=== PATIENT | female | born 1985 | race Caucasian/White ===

== ENCOUNTER 2017-08-03 20:26 | Emergency (ER) | payer MEDICAID ==
[2017-08-03 21:05] VITALS: BP 128/77; PULSE 92; RESP 16; TEMP 98.1; O2SAT 99
--- NOTE | 2017-08-03 21:55 | ED PDOC ---
HPI: CCC, URI, Sore Throat Time Seen by Provider: 08/03/17 20:33 Chief Complaint (Nursing): ENT Problem Chief Complaint (Provider): Globus sensation History Per: Patient Additional Complaint(s): 31 yo female, PMH of Anemia, gestational DM and Hypothyroid in , presents to ED for evaluation of foreign body sensation and pain in her throat x 2 weeks. Pain worse at night. Pt able to tolerate PO without difficulty; however, pain and FB sensation remains resent while eating. Past Medical History Reviewed: Historical Data, Nursing Documentation, Vital Signs Vital Signs: Last Vital Signs Temp 98.1 F 08/03/17 21:03 Pulse 92 H 08/03/17 21:03 Resp 16 08/03/17 21:03 BP 128/77 08/03/17 21:03 Pulse Ox 99 08/03/17 22:07 - Medical History PMH: Anemia (blood transfusions), Hypothyroidism Denies: HIV, Chronic Kidney Disease, Sexually Transmitted Disease - Surgical History Surgical History: - Family History Family History: States: No Known Family Hx - Living Arrangements Living Arrangements: With Family - Social History Current smoker - smoking cessation education provided: No Alcohol: None Drugs: Denies - Home Medications Home Medications: Ambulatory Orders Medication Instructions Recorded Ferrous Sulfate 325 mg PO BID #30 tab 06/28/14 Docusate Sodium [Colace] 1 tab PO BID #30 sgl 11/04/14 Ethinyl Estradiol/Norgestima 4 tab PO DAILY #50 tab 03/08/15 [Ortho-Cyclen 35 Mcg-0.25 mg] Nitrofurantoin Macrocrystals 100 mg PO BID 5 Days cap 01/01/16 [Macrobid] Ondansetron ODT [Zofran ODT] 4 mg PO DAILY PRN #20 odt 01/01/16 Triamcinolone 0.1% [Triamcinolone 0.1 % TP DAILY #1 tube 01/01/16 0.1% Cream] Cephalexin [cephalexin] 500 mg PO QID 7 Days cap 10/02/16 Ibuprofen [Motrin] 600 mg PO Q6 #20 tab 10/02/16 Methylprednisolone [Medrol Dose 4 mg PO DAILY #21 mg 08/03/17 Pack (21 tabs)] - Allergies Allergies/Adverse Reactions: Allergies Allergy/AdvReac Type Severity Reaction Status Date / Time No Known Allergies Allergy Verified 08/03/17 21:03 Review of Systems ROS Statement: Except As Marked, All Systems Reviewed And Found Negative ENT: Positive for: Throat Pain Physical Exam - Reviewed Nursing Documentation Reviewed: Yes Vital Signs Reviewed: Yes - Physical Exam Appears: Positive for: Well, Non-toxic, No Acute Distress Head Exam: Positive for: ATRAUMATIC, NORMAL INSPECTION, NORMOCEPHALIC Skin: Positive for: Normal Color, Warm, DRY Eye Exam: Positive for: EOMI, Normal appearance, PERRL ENT: Positive for: Pharyngeal Erythema. Negative for: Tonsillar Exudate, Tonsillar Swelling Neck: Positive for: Normal, Painless ROM, Supple, Trachea Midline Cardiovascular/Chest: Positive for: Regular Rate, Rhythm Respiratory: Positive for: CNT, Normal Breath Sounds Gastrointestinal/Abdominal: Positive for: Normal Exam, Bowel Sounds, Soft Back: Positive for: Normal Inspection Extremity: Positive for: Normal ROM Neurologic/Psych: Positive for: Alert, Oriented - Laboratory Results Result Diagrams: 08/03/17 22:48 08/03/17 22:48 - ECG O2 Sat by Pulse Oximetry: 99 Medical Decision Making Medical Decision Making: IV access established and diagnostics ordered. Pt educated on globus sensation and RX for medrol dose pack prescribed, as well as ENT referral Disposition - Clinical Impression Clinical Impression: Globus sensation - Disposition Referrals: Ashish Bey MD [Staff Provider] - Condition: STABLE Prescriptions: Methylprednisolone [Medrol Dose Pack (21 tabs)] 4 mg PO DAILY #21 mg Instructions: Upper Respiratory Infection (ED) Forms: [employer] (Chadian)
[2017-08-03 22:55] LABS: BASO # 0.1 K/uL (0.0-0.2); BASO % 0.5 % (0.0-2.0); EOS # 0.5 K/uL (0.0-0.7); EOS % 4.7 % (0.0-4.0); HEMOGLOBIN 10.6 g/dL (12.0-16.0); LYMPH # 2.9 K/uL (1.0-4.3); LYMPH % 25.9 % (20.0-40.0); MEAN CELL VOLUME 69.8 fl (81.0-99.0); MEAN CORPUSCULAR HEMOGLOBIN 20.7 pg (27.0-31.0); MEAN CORPUSCULAR HGB CONC 29.7 g/dL (33.0-37.0); MEAN PLATELET VOLUME 10.1 fl (7.2-11.7); MONO # 0.6 K/uL (0.0-0.8); MONO % 5.5 % (0.0-10.0); NEUT # 7.2 K/uL (1.8-7.0); NEUT % 63.4 % (50.0-75.0); NRBC % 0.1 % (0.0-0.0); RBC 5.14 Mil/uL (3.80-5.20); RED CELL DISTRIBUTION WIDTH 16.7 % (11.5-14.5); WHITE BLOOD COUNT 11.3 K/uL (4.8-10.8)
[2017-08-03 23:04] LABS: ALB/GLOB RATIO 1.1 (1.0-2.1); ALBUMIN 4.3 g/dL (3.5-5.0); ALT/SGPT 37 U/L (9-52); AST/SGOT 23 U/L (14-36); BLOOD UREA NITROGEN 12 mg/dl (7-17); CALCIUM 9.4 mg/dL (8.4-10.2); GFR AFRICAN-AMERICAN > 60; GFR NON-AFRICAN AMERICAN > 60
[2017-08-03] MEDS ORDERED: Iohexol 300 100 ML IJ ONE (23:37)
[2017-08-03] MEDS ORDERED: Sodium Chloride 0.9% 50 ML IV ONE (23:37)
--- NOTE | 2017-08-04 00:45 | CT ---
EXAM: CT Neck With Intravenous Contrast EXAM DATE/TIME: 08/03/2017 10:12 PM CLINICAL HISTORY: 31 years old, female; Pain; Other: F/ b sensation; Additional info: Thyroid mass, f/b sensation TECHNIQUE: Axial computed tomography images of the neck with intravenous contrast. All CT scans at this facility use one or more dose reduction techniques, viz.: automated exposure control; ma/kV adjustment per patient size (including targeted exams where dose is matched to indication; i.e. head); or iterative reconstruction technique. Coronal and sagittal reformatted images were created and reviewed. CONTRAST: 80 mL of [id number] administered intravenously. COMPARISON: No relevant prior studies available. FINDINGS: Left nasal piercing. No foreign body within the neck. Tiny mucosal retention cyst right maxillary sinus. Small scattered lymph nodes in the neck bilaterally. Small partially calcified area of low attenuation in the anterior thyroid likely of benign etiology however short-term followup ultrasound could be due assess for stability. The airway is patent. A normal epiglottis is identified. No abscess. The osseous structures are normal. The vasculature is normal. IMPRESSION: No acute findings.
== END 2017-08-04 01:00 | disposition home or self-care (01) ==
LOC: H.ER 20:26
DX: F45.8 Other somatoform disorders (principal); D64.9 Anemia, unspecified; E03.9 Hypothyroidism, unspecified
CPT/HCPCS: 70491; 80053; 81025; 84443; 85025; 87070; 87430; 99282; Q9967

== ENCOUNTER 2018-04-11 16:34 | Emergency (ER) | payer MEDICAID ==
[2018-04-11 16:54] VITALS: BP 125/80; PULSE 101; RESP 16; TEMP 98.8; O2SAT 98
[2018-04-11] MEDS: Sodium Chloride 0.9% 1,000 ML IV SCH ×2 (18:06→19:25)
[2018-04-11 18:11] LABS: BASO # 0.1 K/uL (0.0-0.2); BASO % 0.6 % (0.0-2.0); EOS # 0.5 K/uL (0.0-0.7); EOS % 5.9 % (0.0-4.0); HEMOGLOBIN 10.2 g/dL (12.0-16.0); LYMPH # 2.7 K/uL (1.0-4.3); LYMPH % 30.1 % (20.0-40.0); MEAN CELL VOLUME 63.1 fl (81.0-99.0); MEAN CORPUSCULAR HEMOGLOBIN 19.2 pg (27.0-31.0); MEAN CORPUSCULAR HGB CONC 30.5 g/dL (33.0-37.0); MONO # 0.6 K/uL (0.0-0.8); MONO % 6.2 % (0.0-10.0); NEUT # 5.1 K/uL (1.8-7.0); NEUT % 57.2 % (50.0-75.0); RBC 5.3 Mil/uL (3.80-5.20); RED CELL DISTRIBUTION WIDTH 20.1 % (11.5-14.5)
[2018-04-11 18:15] LABS: INR 1.1; PROTHROMBIN TIME 12.5 Seconds (9.8-13.1)
[2018-04-11] MEDS ORDERED: Iohexol 300 100 ML IJ ONE (18:17)
[2018-04-11] MEDS ORDERED: Sodium Chloride 0.9% 50 ML IV ONE (18:17)
[2018-04-11 18:18] LABS: PARTIAL THROMBOPLASTIN TIME 46.2 Seconds (25.6-37.1)
[2018-04-11 18:20] LABS: BLOOD UREA NITROGEN 9 mg/dl (7-17); CALCIUM 9.4 mg/dL (8.4-10.2); GFR NON-AFRICAN AMERICAN > 60; LIPASE 56 U/L (23-300)
[2018-04-11 18:22] LABS: SQUAMOUS EPITHIAL 11 /hpf (0-5); URINE BACTERIA OCC (<OCC); URINE BILIRUBIN NEGATIVE (NEGATIVE); URINE BLOOD NEGATIVE (NEGATIVE); URINE CLARITY CLOUDY (Clear); URINE COLOR YELLOW (YELLOW); URINE GLUCOSE (UA) NEG (Normal); URINE LEUKOCYTE ESTERASE LARGE Leu/uL (Negative); URINE PROTEIN NEGATIVE (NEGATIVE); URINE UROBILINOGEN 0.2-1.0 mg/dL (0.2-1.0)
--- NOTE | 2018-04-11 18:29 | ED PDOC ---
HPI: Abdomen Chief Complaint (Nursing): Abdominal Pain Chief Complaint (Provider): Abdominal Pain and rectal bleed History Per: Patient Onset/Duration Of Symptoms: Days Outside of [place] travel?: Yes Other Location:: [place] Current Symptoms Are (Timing): Still Present Context: Travel, Food Severity: Moderate Pain Scale Rating Of: 5 Location Of Pain/Discomfort: Epigastric Quality Of Discomfort: Sharp Associated Symptoms: Vomiting (NBNB x2). denies: Nausea Exacerbating Factors: Food Alleviating Factors: None Last Bowel Movement: Yesterday Additional Complaint(s): 32 yo F with pmhx of anemia, GDM, hypothyroid during presents to the ED with 5 day history of diarrhea after returning from [place] 11/30/2017. Diarrhea was consistent for 5 days and yesterday, stools were formed, however, maroon colored and she noticed dark blood in the toilet bowel yesterday. She reports seeing streaks of blood after wiping post bowel movement. She reports epigastric pain localized, sharp, exacerbated with eating foods and with acid reflux up to her throat. She tried to take tums but it didnt help with her acid reflux. She denies trauma to the abdomen. Of note: she reports history of rectal bleed. Dx with anal fissure. PMD: Jono Jasso Surg: c/s x2 Soc: denies smoking, alcohol, illicit use NKDA Abnormal Vaginal Bleeding: No Past Medical History Vital Signs: Last Vital Signs Temp 98.8 F 04/11/18 16:51 Pulse 101 H 04/11/18 16:51 Resp 16 04/11/18 16:51 BP 125/80 04/11/18 16:51 Pulse Ox 98 04/11/18 18:56 - Medical History PMH: Anemia (blood transfusions), Hypothyroidism Denies: HIV, Chronic Kidney Disease, Sexually Transmitted Disease - Surgical History Surgical History: - Family History Family History: States: Diabetes Other Family History: Cancer: breast, lung, - Living Arrangements Living Arrangements: With Family - Social History Current smoker - smoking cessation education provided: No Alcohol: None Drugs: Denies - Home Medications Home Medications: Ambulatory Orders Medication Instructions Recorded Ferrous Sulfate 325 mg PO BID #30 tab 06/28/14 Docusate Sodium [Colace] 1 tab PO BID #30 sgl 11/04/14 Ethinyl Estradiol/Norgestima 4 tab PO DAILY #50 tab 03/08/15 [Ortho-Cyclen 35 Mcg-0.25 mg] Nitrofurantoin Macrocrystals 100 mg PO BID 5 Days cap 01/01/16 [Macrobid] Ondansetron ODT [Zofran ODT] 4 mg PO DAILY PRN #20 odt 01/01/16 Triamcinolone 0.1% [Triamcinolone 0.1 % TP DAILY #1 tube 01/01/16 0.1% Cream] Cephalexin [cephalexin] 500 mg PO QID 7 Days cap 10/02/16 Ibuprofen [Motrin] 600 mg PO Q6 #20 tab 10/02/16 Methylprednisolone [Medrol Dose 4 mg PO DAILY #21 mg 08/03/17 Pack (21 tabs)] - Allergies Allergies/Adverse Reactions: Allergies Allergy/AdvReac Type Severity Reaction Status Date / Time No Known Allergies Allergy Verified 04/11/18 16:51 Review of Systems Constitutional: Negative for: Fever Cardiovascular: Negative for: Chest Pain Respiratory: Negative for: Shortness of Breath Gastrointestinal: Positive for: Abdominal Pain (epigastric), Rectal Pain. Negative for: Nausea, Vomiting, Hematemesis Physical Exam - Reviewed Nursing Documentation Reviewed: Yes Vital Signs Reviewed: Yes - Physical Exam Appears: Positive for: Non-toxic, No Acute Distress Eye Exam: Positive for: EOMI Cardiovascular/Chest: Positive for: Regular Rate, Rhythm. Negative for: Murmur Respiratory: Positive for: Normal Breath Sounds. Negative for: Wheezing Gastrointestinal/Abdominal: Positive for: Bowel Sounds, Soft, Tenderness ( epigastric). Negative for: Distended, Rebound Rectal: Positive for: Rectal Tone Is: (firm), Hemorrhoids (external at 6:00, active bleeding; nonthrombosed), Tenderness Neurologic/Psych: Positive for: Alert, facilities maintenance manager II-XII, Oriented Front/Back of Body: 1 - epigastric tenderness 2 - Rectal bleed, external hemorrhoid at 6:00 - Laboratory Results Result Diagrams: 04/11/18 18:00 04/11/18 18:00 - ECG O2 Sat by Pulse Oximetry: 98 - Progress ED Course And Treament: 32 yo F with pmhx of anemia, GDM, hypothyroid during presents to the ED with diarrhea, epigastric pain and rectal bleed -UA, u preg, CT abdo with IV contrast -CBC, BMP, Type and Screen, PT/T inr, Lipase, occult blood, -IVF ns bolus -Acetaminophen case dw Dr. Mulu Cummings MD PGY2 Disposition - Clinical Impression Clinical Impression: Abdominal pain, Rectal bleed, External hemorrhoid, bleeding - Disposition Disposition Time: 19:02 Condition: GOOD Forms: [facility] (Zambian)
[2018-04-11] MEDS ORDERED: Sodium Chloride 0.9% 1,000 ML IV SCH (18:50)
--- NOTE | 2018-04-12 09:05 | CT ---
Date of service: 04/11/2018 PROCEDURE: CT Abdomen and Pelvis with contrast HISTORY: abdo pain, COMPARISON: None. TECHNIQUE: Contrast dose: 95 mL of Omnipaque 300 Radiation dose: Total exam DLP = 923 mGy-cm. This CT exam was performed using one or more of the following dose reduction techniques: Automated exposure control, adjustment of the mA and/or kV according to patient size, and/or use of iterative reconstruction technique. FINDINGS: LOWER THORAX: Unremarkable. LIVER: Hepatic steatosis No gross lesion or ductal dilatation. GALLBLADDER AND BILE DUCTS: Unremarkable. PANCREAS: Unremarkable. No gross lesion or ductal dilatation. SPLEEN: Unremarkable. ADRENALS: Unremarkable. No mass. KIDNEYS AND URETERS: Unremarkable. No hydronephrosis. No solid mass. VASCULATURE: Unremarkable. No aortic aneurysm. BOWEL: Minimal rectosigmoid diverticulosis no complicating diverticulitis seen. No obstruction. No gross mural thickening. APPENDIX: Normal appendix. PERITONEUM: Unremarkable. No free fluid. No free air. LYMPH NODES: Unremarkable. No enlarged lymph nodes. BLADDER: Unremarkable. REPRODUCTIVE: Unremarkable. BONES: No acute fracture. OTHER FINDINGS: Small fat only containing umbilical hernia. IMPRESSION: Hepatic steatosis. Minimal rectosigmoid diverticulosis no complicating diverticulitis seen. No obstruction. Small fat only containing umbilical hernia. Results are essentially concordant with (preliminary interpretation) provided by [facility].
== END 2018-04-11 21:32 | disposition home or self-care (01) ==
LOC: H.ER 16:34
DX: K62.5 Hemorrhage of anus and rectum (principal); K64.8 Other hemorrhoids; E03.9 Hypothyroidism, unspecified
CPT/HCPCS: 74177; 80048; 81003; 81025; 83690; 85025; 85610; 85730; 86850; 86900; 96361; 96374; 99283; C9113; G0328; J7030; Q9967

== ENCOUNTER 2018-07-23 21:11 | Inpatient (IN) | payer MEDICAID ==
[2018-07-23] MEDS ORDERED: Sodium Chloride 0.9% 1,000 ML IV STA (21:45)
[2018-07-23 22:15] LABS: BASO # 0.1 K/uL (0.0-0.2); BASO % 0.7 % (0.0-2.0); EOS # 0.5 K/uL (0.0-0.7); EOS % 6.5 % (0.0-4.0); HEMOGLOBIN 8.8 g/dL (12.0-16.0); LYMPH # 2.5 K/uL (1.0-4.3); MEAN CELL VOLUME 64.8 fl (81.0-99.0); MEAN CORPUSCULAR HEMOGLOBIN 19.2 pg (27.0-31.0); MEAN CORPUSCULAR HGB CONC 29.6 g/dL (33.0-37.0); MEAN PLATELET VOLUME 10.3 fl (7.2-11.7); MONO # 0.5 K/uL (0.0-0.8); MONO % 6.8 % (0.0-10.0); NEUT # 4.4 K/uL (1.8-7.0); NRBC % 0.2 % (0.0-0.0); RBC 4.58 Mil/uL (3.80-5.20); RED CELL DISTRIBUTION WIDTH 18.7 % (11.5-14.5); WHITE BLOOD COUNT 8.1 K/uL (4.8-10.8)
[2018-07-23 22:25] LABS: BLOOD UREA NITROGEN 13 mg/dl (7-17); CALCIUM 8.9 mg/dL (8.4-10.2); GFR NON-AFRICAN AMERICAN > 60
--- NOTE | 2018-07-23 22:49 | ED PDOC ---
HPI: Female Pain Time Seen by Provider: 07/23/18 21:25 Chief Complaint (Nursing): Female Genitourinary Chief Complaint (Provider): Vaginal Bleeding History Per: Patient History/Exam Limitations: no limitations Onset/Duration Of Symptoms: Days (x10) Current Symptoms Are (Timing): Still Present Additional Complaint(s): 32 year old female with pmhx of uterine fibroids without any problems for the last several years presents to the ED for evaluation of vaginal bleeding associated with the passage of clots for the past ten days. Patient states that the cycle before, bleeding lasted seven days and was heavier than normal. She reports three previous pregnancies with no complications, her last fibroid related vaginal bleeding two years ago before her last . Today, she says she began to additionally feel light headed associated with back pain and a headache, prompting her visit. She has an outpatient US to complete, but has been unable to due to her children being sick. Otherwise, she is in a monogamous relationship and denies abdominal pain and dysuria. Of note, patient has had six previous blood transfusions due to her vaginal bleeding. PMD: [place] Past Medical History Reviewed: Historical Data, Nursing Documentation, Vital Signs Vital Signs: Last Vital Signs Temp 98.7 F 07/23/18 21:16 Pulse 101 H 07/23/18 21:16 Resp 19 07/23/18 21:16 BP 128/76 07/23/18 21:16 Pulse Ox 100 07/23/18 21:16 - Medical History PMH: Anemia (blood transfusions), Hypothyroidism Denies: HIV, Chronic Kidney Disease, Sexually Transmitted Disease Other PMH: uterine fibroids - Surgical History Surgical History: - Family History Family History: States: Diabetes - Social History Current smoker - smoking cessation education provided: No Alcohol: None Drugs: Denies - Home Medications Home Medications: Ambulatory Orders Medication Instructions Recorded Ferrous Sulfate 325 mg PO BID #30 tab 06/28/14 Docusate Sodium [Colace] 1 tab PO BID #30 sgl 11/04/14 Ethinyl Estradiol/Norgestima 4 tab PO DAILY #50 tab 03/08/15 [Ortho-Cyclen 35 Mcg-0.25 mg] Nitrofurantoin Macrocrystals 100 mg PO BID 5 Days cap 01/01/16 [Macrobid] Ondansetron ODT [Zofran ODT] 4 mg PO DAILY PRN #20 odt 01/01/16 Triamcinolone 0.1% [Triamcinolone 0.1 % TP DAILY #1 tube 01/01/16 0.1% Cream] Cephalexin [cephalexin] 500 mg PO QID 7 Days cap 10/02/16 Ibuprofen [Motrin] 600 mg PO Q6 #20 tab 10/02/16 Methylprednisolone [Medrol Dose 4 mg PO DAILY #21 mg 08/03/17 Pack (21 tabs)] Hydrocortisone 2.5% (Rectal) 30 applic ID BID #1 tube 04/11/18 [Anusol-HC] - Allergies Allergies/Adverse Reactions: Allergies Allergy/AdvReac Type Severity Reaction Status Date / Time No Known Allergies Allergy Verified 04/11/18 16:51 Review of Systems ROS Statement: Except As Marked, All Systems Reviewed And Found Negative Cardiovascular: Positive for: Light Headedness Gastrointestinal: Negative for: Abdominal Pain Genitourinary Female: Positive for: Vaginal Bleeding. Negative for: Dysuria Musculoskeletal: Positive for: Back Pain Neurological: Positive for: Headache Physical Exam - Reviewed Nursing Documentation Reviewed: Yes Vital Signs Reviewed: Yes - Physical Exam Appears: Positive for: No Acute Distress Head Exam: Positive for: ATRAUMATIC, NORMOCEPHALIC Skin: Positive for: Normal Color, Warm Eye Exam: Positive for: Other (mild conjunctival pallor) Neck: Positive for: Normal, Painless ROM, Supple Cardiovascular/Chest: Positive for: Regular Rate, Rhythm Respiratory: Positive for: Normal Breath Sounds. Negative for: Respiratory Distress Gastrointestinal/Abdominal: Positive for: Normal Exam, Soft. Negative for: Tenderness Pelvic Exam: Positive for: Other (deferred until substation operator automatic available) Back: Positive for: Normal Inspection Extremity: Positive for: Normal ROM (all extremities) Neurologic/Psych: Positive for: Alert, Oriented (x3) - Laboratory Results Result Diagrams: 07/23/18 22:12 07/23/18 22:12 - ECG O2 Sat by Pulse Oximetry: 100 (RA) Pulse Ox Interpretation: Normal Medical Decision Making Medical Decision Making: Time: 2144 Initial Impression: dysmenorrhea, most likely due to exacerbation of uterine fibroids Initial Plan: --Type and screen --BMP --CBC with differential --Normal saline IV --Tylenol 650mg PO --US Pelvis/ transvag --Blood transfusion if anemic --Reevaluation 00:58 Labs received; Hemoglobin is at 8.8. Patient continues to feel dizzy, weak and a headache. Patient agrees to stay for a blood transfusion. All states that she rolled her ankle one month ago and is able to ambulate but with pain. Will place left ankle in a splint for comfort. Spoke to rail car welder, Dr. De La Fuente who recommends giving estrogen for bleeding and states that patient will most likely follow up outpatient. Orders placed. Scribe Attestation: Documented by Marcie Singletary, acting as a scribe for Millie Shirley MD. Provider Scribe Attestation: All medical record entries made by the Scribe were at my direction and personally dictated by me. I have reviewed the chart and agree that the record accurately reflects my personal performance of the history, physical exam, medical decision making, and the department course for this patient. I have also personally directed, reviewed, and agree with the discharge instructions and disposition. Disposition - Disposition Forms: [employer] ([place])
[2018-07-24] MEDS ORDERED: Oxycodone/Acetaminophen 5/325 mg Tab PO ONE (00:57)
[2018-07-24] MEDS ORDERED: Oxycodone/Acetaminophen 5/325 mg Tab ONE (01:51)
[2018-07-24] MEDS ORDERED: Sterile Water 10 ML IV ONE (02:02)
[2018-07-24] MEDS ORDERED: Pneumococcal 23-Valent Vaccine IM ONE (05:04)
[2018-07-24] MEDS ORDERED: Influenza Vaccine (5 YR UP)/PF 60 MCG/0.5 ML SYR IM ONE (05:06)
--- NOTE | 2018-07-24 07:24 | CP.PCM.HP ---
History of Present Illness - History of Present Illness History of Present Illness: pt presented to er yesterday for vaginal bleed found to be anemic imaging and bw review no other complaints no fcnvd received 1 unit now on second Present on Admission - Present on Admission Any Indicators Present on Admission: No Review of Systems - Reproductive: Female Reproductive:Female: As Per HPI, Abnormal Vaginal Bleeding, Dysmenorrhea Past Patient History - Past Medical History & Family History Past Medical History?: No - Past Social History Smoking Status: Never Smoked - CARDIAC Hx Cardiac Disorders: No - PULMONARY Hx Respiratory Disorders: No - NEUROLOGICAL Hx Neurological Disorder: No - HEENT Hx HEENT Problems: No - RENAL Hx Chronic Kidney Disease: No - ENDOCRINE/METABOLIC Hx Endocrine Disorders: Yes Hx Hypothyroidism: Yes - HEMATOLOGICAL/ONCOLOGICAL Hx Blood Disorders: Yes Hx Anemia: Yes (blood transfusions) Hx Human Immunodeficiency Virus (HIV): No - INTEGUMENTARY Hx Dermatological Problems: Yes Hx [place]: Yes (right leg and stomach at 7yrs of age) Other/Comment: Skin graft - MUSCULOSKELETAL/RHEUMATOLOGICAL Hx Musculoskeletal Disorders: Yes Hx [place]: Yes - GASTROINTESTINAL Hx Gastrointestinal Disorders: Yes Hx Constipation: Yes (2ra to Iron) - GENITOURINARY/GYNECOLOGICAL Hx Genitourinary Disorders: No Hx Sexually Transmitted Disorders: No - PSYCHIATRIC Hx Psychophysiologic Disorder: No Hx Substance Use: No - SURGICAL HISTORY Hx Surgeries: Yes Hx Section: Yes (x2) Other/Comment: plastic surgery for collins in childhood - ANESTHESIA Hx Anesthesia: Yes Hx Anesthesia Reactions: No (congestion) Hx Malignant Hyperthermia: No Meds Allergies/Adverse Reactions: Allergies Allergy/AdvReac Type Severity Reaction Status Date / Time No Known Allergies Allergy Verified 04/11/18 16:51 Physical Exam - Constitutional Appears: Well, Non-toxic, No Acute Distress - Head Exam Head Exam: ATRAUMATIC, NORMAL INSPECTION, NORMOCEPHALIC - Eye Exam Eye Exam: EOMI, Normal appearance, PERRL Pupil Exam: NORMAL ACCOMODATION, PERRL - ENT Exam ENT Exam: Mucous Membranes Moist, Normal Exam - Neck Exam Neck exam: Positive for: Normal Inspection - Respiratory Exam Respiratory Exam: Clear to Auscultation Bilateral, NORMAL BREATHING PATTERN - Cardiovascular Exam Cardiovascular Exam: REGULAR RHYTHM, RRR, +S1, +S2 - GI/Abdominal Exam GI & Abdominal Exam: Normal Bowel Sounds, Soft. absent: Tenderness - Extremities Exam Extremities exam: Positive for: full ROM, normal capillary refill, normal inspection, pedal pulses present - Back Exam Back exam: NORMAL INSPECTION - Neurological Exam Neurological exam: Alert, CN II-XII Intact, Normal Gait, Oriented x3, Reflexes Normal - Psychiatric Exam Psychiatric exam: Normal Affect, Normal Mood - Skin Skin Exam: Dry, Intact, Normal Color, Warm Results - Vital Signs Recent Vital Signs: Last Vital Signs Temp 98.0 F 07/24/18 06:59 Pulse 79 07/24/18 06:59 Resp 97 H 07/24/18 06:59 BP 97/62 L 07/24/18 06:59 Pulse Ox 100 07/24/18 04:03 - Labs Result Diagrams: 07/23/18 22:12 07/23/18 22:12 Labs: Laboratory Results - last 24 hr 07/23/18 07/23/18 07/23/18 22:12 22:12 22:12 WBC 8.1 RBC 4.58 Hgb 8.8 L Hct 29.7 L MCV 64.8 L MCH 19.2 L MCHC 29.6 L RDW 18.7 H Plt Count 327 MPV 10.3 Neut % (Auto) 55.0 Lymph % (Auto) 31.0 [place] % (Auto) 6.8 Eos % (Auto) 6.5 H Baso % (Auto) 0.7 Neut # (Auto) 4.4 Lymph # (Auto) 2.5 [place] # (Auto) 0.5 Eos # (Auto) 0.5 Baso # (Auto) 0.1 Sodium 139 Potassium 4.1 Chloride 106 Carbon Dioxide 26 Anion Gap 11 BUN 13 Creatinine 0.8 Est GFR ( Amer) > 60 Est GFR (Non-Af Amer) > 60 Random Glucose 120 H Calcium 8.9 Blood Type A POSITIVE Antibody Screen Negative Crossmatch See Detail BBK History Checked Patient has bt Assessment & Plan (1) Symptomatic anemia Assessment and Plan: 2 unit prbc cbc p 2nd unit outpt heme/onc work up likely r/t vaginal bleeding from fibroids Status: Acute (2) Vaginal bleeding Assessment and Plan: r/t fibroids obgyn iv estrogen given in ER US noted Status: Acute Decision To Admit - Pt Status Changed To: Hospital Disposition Of: Inpatient - Admit Certification Admit to Inpatient:: After my assessment, the patient will require hospitaliza tion for at least two midnights. This is because of the severity of symptoms shown, intensity of services needed, and/or the medical risk in this patient being treated as an outpatient. - . Bed Request Type: Med/Surg Admitting Physician: Chetan Bryant
[2018-07-24 08:55] VITALS: O2SAT 99
--- NOTE | 2018-07-24 09:19 | CP.PCM.CON ---
History of Present Illness - History of Present Illness History of Present Illness: 32 YO Female with PMHx of hypothyroidism, Uterine fibroids, and recurrent anemia due to vaginal bleeding, who presents with c/o vaginal bleeding with passage of clots continuously for the last 10 days, patient states that she was changing the pad 3 to 4 times per day, and she started feeling lightheaded, fatigue, and palpitations prompting her to come to the hospital. Patient was found on arrival to have symptomatic anemia Hb 8.8 and has received 2 units of PRBC already. Patient reports first episode of vaginal bleeding lasted 1 month in 2016 that required admission and blood transfusion at that time, and she reports totaling six previous blood transfusion due to vaginal bleeding. At the time of this encounter patient reports feeling better, and report resolution of the lightheadedness, fatigue and palpitations, she also denies chest pain, SOB, abdominal pain, N/V/D, dysuria, chills or fever. OBGYN: Patient is : First P 2008 due to face presentation, Second P 2016 repeat and GDM. Menarche 14 YO, with h/o regular monthly periods x 3 days in the past. ROS: Unremarkable, except as per HPI. PMD: Dr De La Cruz PMH: Hypothyroidism, Uterine fibroids, Anemia FMH: Mother and Father have DM SURG: C-sectionx2, Leg sx ALL: NKA MEDS: Denies SOCHx: Denies Tob/ETOH/Drug use. Hptal Course: 2 units of Leukocyte reduced PRBC given. Premarin 25 mg IV x 1 dose administered. Labs 07/23 reviewed: H/H 8.8/29.7 Past Patient History - Past Medical History & Family History Past Medical History?: No - Past Social History Smoking Status: Never Smoked - CARDIAC Hx Cardiac Disorders: No - PULMONARY Hx Respiratory Disorders: No - NEUROLOGICAL Hx Neurological Disorder: No - HEENT Hx HEENT Problems: No - RENAL Hx Chronic Kidney Disease: No - ENDOCRINE/METABOLIC Hx Endocrine Disorders: Yes Hx Hypothyroidism: Yes - HEMATOLOGICAL/ONCOLOGICAL Hx Blood Disorders: Yes Hx Anemia: Yes (blood transfusions) Hx Human Immunodeficiency Virus (HIV): No - INTEGUMENTARY Hx Dermatological Problems: Yes Hx Collins: Yes (right leg and stomach at 7yrs of age) Other/Comment: Skin graft - MUSCULOSKELETAL/RHEUMATOLOGICAL Hx Musculoskeletal Disorders: Yes Hx Falls: Yes - GASTROINTESTINAL Hx Gastrointestinal Disorders: Yes Hx Constipation: Yes (2ra to Iron) - GENITOURINARY/GYNECOLOGICAL Hx Genitourinary Disorders: No Hx Sexually Transmitted Disorders: No - PSYCHIATRIC Hx Psychophysiologic Disorder: No Hx Substance Use: No - SURGICAL HISTORY Hx Surgeries: Yes Hx Section: Yes (x2) Other/Comment: plastic surgery for collins in childhood - ANESTHESIA Hx Anesthesia: Yes Hx Anesthesia Reactions: No (congestion) Hx Malignant Hyperthermia: No Meds Allergies/Adverse Reactions: Allergies Allergy/AdvReac Type Severity Reaction Status Date / Time No Known Allergies Allergy Verified 04/11/18 16:51 - Medications Medications: Current Medications Ondansetron HCl (Zofran Inj) 4 mg IVP Q6 PRN PRN Reason: Nausea/Vomiting Physical Exam - Constitutional Appears: No Acute Distress - Head Exam Head Exam: ATRAUMATIC, NORMOCEPHALIC - Eye Exam Eye Exam: EOMI - ENT Exam ENT Exam: Mucous Membranes Moist - Neck Exam Neck exam: Positive for: Full Rom - Respiratory Exam Respiratory Exam: Clear to Auscultation Bilateral. absent: Wheezes - Cardiovascular Exam Cardiovascular Exam: REGULAR RHYTHM, RRR, +S1, +S2 - GI/Abdominal Exam GI & Abdominal Exam: Normal Bowel Sounds, Soft. absent: Tenderness - Exam Additional comments: Pelvic exam declined by patient - Extremities Exam Extremities exam: Negative for: pedal edema - Neurological Exam Neurological exam: Alert, Oriented x3 - Skin Skin Exam: Normal Color Results - Vital Signs Recent Vital Signs: Last Vital Signs Temp 97.7 F 07/24/18 08:54 Pulse 77 07/24/18 08:54 Resp 19 07/24/18 08:54 BP 102/71 07/24/18 08:54 Pulse Ox 99 07/24/18 08:54 - Labs Result Diagrams: 07/23/18 22:12 07/23/18 22:12 Labs: Laboratory Results - last 24 hr 07/23/18 07/23/18 07/23/18 22:12 22:12 22:12 WBC 8.1 RBC 4.58 Hgb 8.8 L Hct 29.7 L MCV 64.8 L MCH 19.2 L MCHC 29.6 L RDW 18.7 H Plt Count 327 MPV 10.3 Neut % (Auto) 55.0 Lymph % (Auto) 31.0 Hodgeman % (Auto) 6.8 Eos % (Auto) 6.5 H Baso % (Auto) 0.7 Neut # (Auto) 4.4 Lymph # (Auto) 2.5 Hodgeman # (Auto) 0.5 Eos # (Auto) 0.5 Baso # (Auto) 0.1 Sodium 139 Potassium 4.1 Chloride 106 Carbon Dioxide 26 Anion Gap 11 BUN 13 Creatinine 0.8 Est GFR ( Amer) > 60 Est GFR (Non-Af Amer) > 60 Random Glucose 120 H Calcium 8.9 Blood Type A POSITIVE Antibody Screen Negative Crossmatch See Detail BBK History Checked Patient has bt Assessment & Plan - Assessment and Plan (Free Text) Assessment: 32 YO Female with PMHx of hypothyroidism, Uterine fibroids, and recurrent anemia due to vaginal bleeding, seen today in consult due to vaginal bleeding for 10 days and anemia of Hb 8.8. Patient received 2 units of PRBC already and Premarin 25 mg IV x1 dose given. Patient reports a significant improvement of symptoms and is hemodynamically stable. At this time patient declined Pelvic examination, she requires follow up with OBGYN as outpatient. Patient questions are answered and patient verbalizes understanding instructions given regarding f/u, states she will f/u with Supervising Fire Marshal at [place]. Thank you for this consult. Case seen and discussed with attending Dr De La Fuente. Joe Fuller MD PGY1
[2018-07-24 09:27] VITALS: TEMP 97.8
[2018-07-24 12:13] VITALS: BP 93/63; PULSE 92; RESP 16
--- NOTE | 2018-07-24 12:32 | US ---
Date of service: 07/23/2018 HISTORY: Excessive vaginal bleeding 10 days duration. LMP 07/13/2018. COMPARISON: 01/01/2016 TECHNIQUE: Transabdominal, transvaginal. Real -time technique with 2D, duplex and color Doppler. FINDINGS: UTERUS: Measures 4 x 6.4 x 8.6 cm. Normal in size and appearance. No fibroid or other mass lesion seen. ENDOMETRIUM: Measures 17.1 mm in diameter. Endometrial hypertrophy without focal abnormality. No mass, abnormal fluid collection or saclike structure identified. CERVIX: No cervical abnormality identified. RIGHT OVARY: Measures 2.2 x 2.4 x 4 cm. No solid mass. Normal flow. Dominant simple cyst 1.5 x 1.6 x 2.5 cm. Multiple subcentimeter follicles. LEFT OVARY: Measures 2.2 x 2.6 x 2.7 cm. No solid mass. Normal flow. Dominant cyst 1.2 x 1.4 cm. Multiple subcentimeter follicles. FREE FLUID: No significant free fluid noted. OTHER FINDINGS: None. IMPRESSION: Unremarkable uterus. Thickened endometrium without focal abnormality. Bilateral adnexal cysts/follicles. Concordant findings (preliminary report) provided by [facility].
[2018-07-24 13:44] LABS: BASO # 0.1 K/uL (0.0-0.2); BASO % 0.8 % (0.0-2.0); EOS # 0.5 K/uL (0.0-0.7); EOS % 4.9 % (0.0-4.0); HEMOGLOBIN 10.7 g/dL (12.0-16.0); LYMPH # 2.9 K/uL (1.0-4.3); LYMPH % 26.1 % (20.0-40.0); MEAN CELL VOLUME 66.5 fl (81.0-99.0); MEAN CORPUSCULAR HEMOGLOBIN 20.6 pg (27.0-31.0); MEAN PLATELET VOLUME 10.2 fl (7.2-11.7); MONO # 0.8 K/uL (0.0-0.8); MONO % 6.8 % (0.0-10.0); NEUT # 6.8 K/uL (1.8-7.0); NEUT % 61.4 % (50.0-75.0); NRBC % 0.2 % (0.0-0.0); RBC 5.19 Mil/uL (3.80-5.20); RED CELL DISTRIBUTION WIDTH 21.1 % (11.5-14.5); WHITE BLOOD COUNT 11.1 K/uL (4.8-10.8)
--- NOTE | 2018-07-26 08:43 | PQF ---
PROVIDER RESPONSE TEXT: Acte on chronic anemia r/t uterine fibroids. Acute anemia from blood loss REVIEWER QUERY TEXT: Anemia Type Anemia is documented in the Medical Record. Please specify the cause (includes suspected or probable cause) Such as: -- Due to acute blood loss -- Due to chronic blood loss -- Due to iron deficiency -- Due to chronic disease please specify -- Other, please specify The patient's Clinical Indicators include: 32 year old female with pmhx of uterine fibroids without any problems for the last several years pres ents to the ED for evaluation of vaginal bleeding associated with the passage of clots for the past t en days Rx: PRBC, Premarin Query created by: Elvia Natarajan on 07/26/2018 8:35 AM Electronically signed by: Jono Jasso APN 07/26/2018 8:39 AM
== END 2018-07-24 16:24 | disposition home or self-care (01) | DRG 395 ==
LOC: H.ER 21:11 → H.ERHOLD 07-24 00:56 → H.MEDSURG1 07-24 03:51
PROVIDERS: ADMIT Family Medicine; ATTEND Family Medicine
PROC: 30233N1 Transfusion of Nonautologous Red Blood Cells into Peripheral Vein, Percutaneous Approach (ICD-10-PCS; principal; 2018-07-24)
DX: D62 Acute posthemorrhagic anemia (principal); D25.9 Leiomyoma of uterus, unspecified; N93.8 Other specified abnormal uterine and vaginal bleeding; E03.9 Hypothyroidism, unspecified

== ENCOUNTER 2018-08-01 02:00 | Emergency (ER) | payer MEDICAID ==
[2018-08-01 02:29] VITALS: O2SAT 99
[2018-08-01 04:04] LABS: HEMOGLOBIN 10.5 g/dL (12.0-16.0); MEAN CELL VOLUME 69.3 fl (81.0-99.0); MEAN CORPUSCULAR HEMOGLOBIN 20.9 pg (27.0-31.0); MEAN CORPUSCULAR HGB CONC 30.1 g/dL (33.0-37.0); RBC 5.05 Mil/uL (3.80-5.20); RED CELL DISTRIBUTION WIDTH 23.5 % (11.5-14.5); WHITE BLOOD COUNT 8.7 K/uL (4.8-10.8)
[2018-08-01 04:16] LABS: BLOOD UREA NITROGEN 12 mg/dl (7-17); CALCIUM 8.8 mg/dL (8.4-10.2); GFR NON-AFRICAN AMERICAN > 60
[2018-08-01 04:35] LABS: SQUAMOUS EPITHIAL 4 /hpf (0-5); URINE BILIRUBIN NEGATIVE (NEGATIVE); URINE BLOOD LARGE (NEGATIVE); URINE CLARITY TURBID (Clear); URINE COLOR RED (YELLOW); URINE GLUCOSE (UA) NEG (NEGATIVE); URINE LEUKOCYTE ESTERASE NEG Leu/uL (Negative); URINE PROTEIN 100 mg/dL (NEGATIVE); URINE UROBILINOGEN 0.2-1.0 mg/dL (0.2-1.0)
--- NOTE | 2018-08-01 04:45 | ED PDOC ---
HPI: Female Pain Time Seen by Provider: 08/01/18 02:14 Chief Complaint (Nursing): Female Genitourinary History Per: Patient History/Exam Limitations: no limitations Current Symptoms Are (Timing): Still Present Additional Complaint(s): 32 year old with hx of fibroids presenting with vaginal bleeding, states she has been bleeding for the past 4 days, states she was prescribed OCP's by her coffee shop manager but has not started taking them. Denies lightheadedness, dizziness, chest pain, shortness of breath. Denies abdominal pain. States she is changing her pads 4x a day. PMD: Lindsay Past Medical History Reviewed: Historical Data, Nursing Documentation, Vital Signs Vital Signs: Last Vital Signs Temp 98.9 F 08/01/18 02:23 Pulse 93 H 08/01/18 02:23 Resp 16 08/01/18 02:23 BP 109/66 08/01/18 02:23 Pulse Ox 99 08/01/18 02:23 - Medical History PMH: Anemia (blood transfusions), Hypothyroidism Denies: HIV, Chronic Kidney Disease, Sexually Transmitted Disease - Surgical History Surgical History: - Family History Family History: States: Diabetes - Home Medications Home Medications: Ambulatory Orders Medication Instructions Recorded Naproxen [Naprosyn] 500 mg PO BID PRN 07/24/18 - Allergies Allergies/Adverse Reactions: Allergies Allergy/AdvReac Type Severity Reaction Status Date / Time No Known Allergies Allergy Verified 04/11/18 16:51 Review of Systems ROS Statement: Except As Marked, All Systems Reviewed And Found Negative Genitourinary Female: Positive for: Vaginal Bleeding Physical Exam - Reviewed Nursing Documentation Reviewed: Yes Vital Signs Reviewed: Yes - Physical Exam Appears: Positive for: Well, Non-toxic, No Acute Distress Head Exam: Positive for: ATRAUMATIC, NORMAL INSPECTION, NORMOCEPHALIC Skin: Positive for: Normal Color, Warm, DRY Eye Exam: Positive for: EOMI, Normal appearance, PERRL ENT: Positive for: Normal ENT Inspection Neck: Positive for: Normal, Painless ROM Cardiovascular/Chest: Positive for: Regular Rate, Rhythm Respiratory: Positive for: CNT, Normal Breath Sounds Gastrointestinal/Abdominal: Positive for: Normal Exam, Soft Back: Positive for: Normal Inspection Extremity: Positive for: Normal ROM Neurologic/Psych: Positive for: Alert, land checker II-XII, Oriented. Negative for: Motor/Sensory Deficits - Laboratory Results Result Diagrams: 08/01/18 03:55 08/01/18 03:55 Lab Results: Urine Color Red (YELLOW) 08/01/18 04:10 Urine Clarity Turbid (Clear) 08/01/18 04:10 Urine pH 6.0 (5.0-8.0) 08/01/18 04:10 Ur Specific [place] 1.018 (1.003-1.030) 08/01/18 04:10 Urine Protein 100 mg/dL (NEGATIVE) 08/01/18 04:10 Urine Glucose (UA) Neg mg/dL (NEGATIVE) 08/01/18 04:10 Urine Ketones Negative mg/dL (NEGATIVE) 08/01/18 04:10 Urine Blood Large (NEGATIVE) 08/01/18 04:10 Urine Nitrate Negative (NEGATIVE) 08/01/18 04:10 Urine Bilirubin Negative (NEGATIVE) 08/01/18 04:10 Urine Urobilinogen 0.2-1.0 mg/dL (0.2-1.0) 08/01/18 04:10 Ur Leukocyte Esterase Neg Lonnie/uL (Negative) 08/01/18 04:10 Urine RBC (Auto) 7317 /hpf (0-3) H 08/01/18 04:10 Ur Squamous Epith Cells 4 /hpf (0-5) 08/01/18 04:10 - ECG O2 Sat by Pulse Oximetry: 99 Pulse Ox Interpretation: Normal Medical Decision Making Medical Decision Makin Patient presenting with vaginal bleeding --Stable appearing, normal vitals --Advised patient that OCP's were prescribed to her to control the bleeding --Will rule out acute anemia with labwork 600 --Not anemia --Advised patient to begin OCP's and followup as outpatient --Very well appearing upon discharge Disposition - Clinical Impression Clinical Impression: Dysfunctional uterine bleeding - Disposition [facility] Kaya Wilkinson MD [Family Provider] - Disposition: Routine/Home Disposition Time: 06:00 Condition: STABLE Instructions: Heavy Periods Forms: [facility] [facility] (Arabic)
[2018-08-01 06:36] VITALS: BP 122/70; PULSE 81; RESP 18; TEMP 98.5
== END 2018-08-01 06:15 | disposition home or self-care (01) ==
LOC: H.ER 02:00
DX: N93.8 Other specified abnormal uterine and vaginal bleeding (principal); E03.9 Hypothyroidism, unspecified